=== PATIENT | male | born 1995 | race Caucasian/White ===

== ENCOUNTER 2020-04-05 20:23 | Observation (INO) | payer OTHER, SELFPAY ==
[2020-04-05] VITALS (9 sets, daily range): BP systolic 131–157; BP diastolic 67–98; PULSE 65–91; RESP 16–28; TEMP 37.3–37.6; O2SAT 95–100; BMI 20.9
--- NOTE | 2020-04-05 20:41 | PC.NURSE ---
patient was smoking weed with some friends and reports feeling light headed afterwards and passed out. He hit the back of his head on the pavement. He sustained a laceration on the back of his head that is approx 2 cm long with another small wound about 0.5cm long right next to it. he reports no midline tenderness on his cervical spine
--- NOTE | 2020-04-05 20:48 | ED_ITS ---
HPI - Syncope General Chief Complaint: Syncope Stated Complaint: fainted and hit his head Time Seen by Provider: 04/05/20 20:32 Source: patient Mode of arrival: Ambulatory Limitations: no limitations History of Present Illness HPI narrative: Patient brought in by his friend. Patient from out [facility]/[place] visiting here. No history of seizures. Patient admits prior to syncopal episode tonight he did smoke marijuana. He had conversation [place]. The conversation made him very anxious and was having difficulty breathing. Patient stated he was feeling faint/dizzy and lowered himself half way down and then fell backwards hitting the ground with his head. Loss of consciousness for about 15 seconds witnessed by his friends, 1 friend at bedside. No seizure activity. Patient is awake alert oriented at this time. Feels a little nauseated. No confusion otherwise. No numbness tingling or weakness. Prior to event denied any palpitation or chest pain or back pain or abdominal pain. Denies any other drug use. Did have 1 beer earlier today. Did have a full seafood meal prior to syncope.. No blood in your stools or black stools recently. No recent illness. No nausea vomiting or diarrhea. No fluid loss. Denies any other injuries complaint: loss of consciousness Related Data Home Medications Medication Instructions Recorded Confirmed No Known Home Medications 04/05/20 04/05/20 Allergies Allergy/AdvReac Type Severity Reaction Status Date / Time No Known Drug Allergies Allergy Verified 04/05/20 20:45 Review of Systems Review of Systems Narrative: GENERAL: Denies chills, fatigue, malaise, fever, sweats. HEENT: Denies sinus pain, ear pain, sore throat, difficulty swallowing RESPIRATORY: Complains dyspnea, denies cough CARDIOVASCULAR: Denies chest pain, palpitations, edema, GASTROINTESTINAL: Denies nausea, vomiting, abdominal pain, diarrhea, constipation, melena. : Denies dysuria, frequency, hematuria MUSCULOSKELETAL: denies muscle or bony pain SKIN: Denies rash, skin lesions NEUROLOGIC: Denies weakness, headache, numbness, change in speech, confusion PSYCHIATRIC: No SI or HI or hallucinations ROS Unobtainable: All systems reviewed & are unremarkable except as noted in HPI and below Patient History Social History Smoking Status: Never smoker Smoking Status: Never smoker alcohol intake frequency: 0-2 drinks per day Substance Use Type: marijuana Exam Narrative Exam Narrative: GENERAL: patient appears stated age. Well-nourished, well- developed patient, in no distress, not toxic not dyspneic HEAD: Normocephalic. Mild tenderness to the top of the scalp left of midline. Two small superficial lacerations. Each 1.5 cm, no bone or muscle injury seen. No gala aponeurosis injury seen. Based visualized bloodless field. No foreign body seen. No crepitus or step-off EYES: Pupils equal round and reactive. No scleral icterus. No injection no discharge ENT: Mucous membranes moist. No drooling no tongue elevation no trismus no malocclusion NECK: Trachea midline. Non tender, no C-spine midline tenderness or step-off. CARDIOVASCULAR: Regular rate and rhythm without murmurs, gallops, or rubs. RESPIRATORY: Clear to auscultation. Breath sounds equal bilaterally. No wheezes, rales, or rhonchi. GASTROINTESTINAL: Abdomen soft, non-tender, nondistended. EXTREMITIES: No gross deformities. BACK: Nontender without deformity or crepitance. No flank tenderness. NEURO: AOx3. Patient awake alert oriented to self and event. Clear speech no facial droop light touch intact to bilateral face hands and legs. Strong equal can tester. Able to stand at bedside with a steady Romberg. Negative pronator drift. SKIN: Warm and dry PSYCH: Not anxious, is cooperative Initial Vital Signs Initial Vital Signs: Vital Signs Temperature 99.4 F 04/05/20 20:31 Pulse Rate 87 04/05/20 20:31 Respiratory Rate 18 04/05/20 20:31 Blood Pressure 155/98 H 04/05/20 20:31 Pulse Oximetry 99 04/05/20 20:31 Procedures Laceration Repair Laceration 1: Site: scalp Side (If applicable): left Size (cm): 2 Description: linear Depth: simple, single layer Local Anesthetic: lidocaine 1% and with epi Amount of anesthesia used (mL): 2 Pre-repair: wound explored and irrigated extensively Skin layer closed with: david (6) Course Course Course Narrative: Orthostatics completed. Patient did elevate 20 beats on standing on pulse. Feels lightheaded. Decision to Admit Date: 04/05/20 Decision to Admit time: 22:02 Orders Ordered: ED Orders 04/05/20 20:33 Complete Blood Count AUTO DIFF Stat Comprehensive Metabolic Panel Stat Magnesium Routine Troponin & CK Cardiac Panel Stat 04/05/20 20:46 CT head/brain wo con Stat EKG-12 Lead Stat 04/05/20 21:24 Urinalysis and Microscopic Stat Urine Drug Screen, Rapid Stat 04/05/20 21:34 COVID19 -ED/INPAT/OR/L&D Stat 04/05/20 21:40 XR chest 1V Stat 04/05/20 22:08 Education, smoking cessation ONGOING 04/05/20 22:10 Consult to Discharge Planning Routine Acetaminophen (Tylenol) 650 mg PO Q6HR PRN PRN Reason: Fever/Mild Pain (1-3) Al Hydrox/Mg Hydrox/Simethicone (Maalox Plus) 30 ml PO Q6HR PRN PRN Reason: Dyspepsia Calcium Carbonate (Tums) 1,000 mg PO Q4HR PRN PRN Reason: Dyspepsia Sodium Chloride (Normal Saline 0.9%) 1,000 mls @ 75 mls/hr IV CONT SHAYNA Ibuprofen (Advil) 600 mg PO Q6HR PRN PRN Reason: Fever/Mild Pain (1-3) Naloxone HCl (Narcan) 0.2 mg IV Q2MIN PRN PRN Reason: Opiate Reversal Ondansetron HCl (Zofran) 4 mg IV Q6HR PRN PRN Reason: Nausea And Vomiting Discontinued Medications Diphtheria/Tetanus/Acell Pertussis (Adacel) 0.5 ml IM .ONCE ONE Stop: 04/05/20 20:48 Last Admin: 04/05/20 20:57 Dose: 0.5 ml Documented by: BIANCA Sodium Chloride (Normal Saline 0.9%) 1,000 mls @ 1,000 mls/hr IV BOLUS ONE Stop: 04/05/20 21:48 Last Infusion: 04/05/20 22:18 Dose: 0 mls/hr Documented by: Admin: 04/05/20 20:57 Dose: 1,000 mls/hr Documented by: BIANCA Lidocaine/Sodium Bicarbonate (Buffered Lidocaine 10 Ml Syr) 10 ml INJ NOW ONE Stop: 04/05/20 20:48 Last Admin: 04/05/20 20:57 Dose: 10 ml Documented by: BIANCA Ondansetron HCl (Zofran) 4 mg IV NOW ONE Stop: 04/05/20 20:48 Last Admin: 04/05/20 20:56 Dose: 4 mg Documented by: BIANCA Reevaluation(s) Reevaluation #1: Spoke with patient regarding results and EKG. Needing echocardiogram in observation tonight. He agrees. Time: 21:39 Consultations Consultation #1: Spoke with cardiology dr alegre, reviewed ekg with him.. Likely left ventricular hypertrophy, patient will need echocardiogram, advises patient be admitted observed tonight and echocardiogram in the morning Time: 21:14 Consultation #2: s/w conner, hospitalist, will admit, echocard in am Time: 22:02 Vital Signs Vital signs: Vital Signs - 8 hr 04/05/20 20:31 04/05/20 20:40 04/05/20 20:53 Temperature 99.4 F Pulse Rate 87 80 67 Pulse Rate [Orthostatic Lying] Pulse Rate [Orthostatic Sitting] Pulse Rate [Orthostatic Standing] Respiratory Rate 18 18 24 Blood Pressure 155/98 H 151/90 H 136/74 Blood Pressure [Orthostatic Lying] Blood Pressure [Orthostatic Sitting] Blood Pressure [Orthostatic Standing] Pulse Oximetry 99 100 100 04/05/20 20:58 04/05/20 21:00 04/05/20 22:00 Temperature Pulse Rate 91 H 88 Pulse Rate [Orthostatic Lying] 65 Pulse Rate [Orthostatic Sitting] 69 Pulse Rate [Orthostatic Standing] 84 Respiratory Rate 28 H Blood Pressure 149/89 H 136/90 Blood Pressure [Orthostatic Lying] 136/74 Blood Pressure [Orthostatic Sitting] 143/86 H Blood Pressure [Orthostatic Standing] 145/87 H Pulse Oximetry 100 97 MDM - Syncope Differential Diagnosis Differential diagnosis: Likely vasovagal syncope and dehydration Lab Data Attestation: I reviewed the patient's lab results. Result diagrams: 04/05/20 20:33 04/05/20 20:33 Labs: Lab Results 04/05/20 04/05/20 04/05/20 Range/Units 20:33 20:33 20:33 WBC 16.4 H (4.5-11.0) X10^3/uL RBC 4.92 (4.5-5.9) X10^6/uL Hgb 15.4 (13.5-17.5) g/dL Hct 44.7 (41-53) % MCV 90.8 (80-100) fL MCH 31.4 (26-34) PG MCHC 34.6 (30-36) % RDW 12.9 (11.6-14.8) % Plt Count 287 (150-400) X10^3/uL Neut % (Auto) 83.4 H (50-75) % Lymph % (Auto) 12.0 L (25-40) % [place] % (Auto) 3.7 (3-14) % Eos % (Auto) 0.2 L (2-4) % Baso % (Auto) 0.7 (0-2) % Neut # (Auto) 70346 H (8714-1122) /uL Lymph # (Auto) 2000 (9629-7376) /uL [place] # (Auto) 600 (0-900) /uL Eos # (Auto) 0 (0-450) /uL Baso # (Auto) 100 (0-100) /uL Sodium 131 L (137-145) mmol/L Potassium 3.5 (3.4-5.1) mmol/L Chloride 96 L (98-107) mmol/L Carbon Dioxide 27 (22-32) mmol/L BUN 11 (9-20) mg/dL Creatinine 0.56 L (0.66-1.25) mg/dL Estimated GFR > 60.0 (>60) mL/min BUN/Creatinine Ratio 19.6 (6-22) Glucose 102 H (70-100) mg/dL Calcium 9.6 (8.4-10.2) mg/dL Magnesium 1.6 (1.6-2.3) mg/dL Total Bilirubin 1.0 (0.2-1.3) mg/dL AST 32 (17-59) IU/L ALT 19 (<50) IU/L Alkaline Phosphatase 110 (38-126) U/L Total Creatine Kinase 84 (55-170) U/L CK-MB (CK-2) TNP CK-MB (CK-2) Rel Index TNP Troponin I < 0.012 (0.01-0.034) ng/mL Total Protein 8.0 (6.3-8.2) g/dL Albumin 5.0 (3.5-5.0) g/dL Globulin 3.0 (1.7-4.1) g/dL Albumin/Globulin Ratio 1.7 (1.0-2.8) Urine Color Urine Appearance Urine pH (4.5-8.0) Ur Specific [place] (1.000-1.035) Urine Protein (Negative) Urine Glucose (UA) (Negative) g/dL Urine Ketones (NEGATIVE) Urine Occult Blood (Negative) Urine Nitrate (Negative) Urine Bilirubin (NEGATIVE) Urine Urobilinogen (0.2) E.U./dL Ur Leukocyte Esterase (NEGATIVE) Urine RBC (0-5/HPF) Urine WBC (0-5/HPF) Urine Bacteria (None) Ur Culture Indicated? U Opiates 300ng/mL cut (Negative) Ur Oxycodone Screen (Negative) Urine Methadone Screen (Negative) Ur Barbiturates Screen (Negative) U Tricyclic Antidepress (Negative) Ur Phencyclidine Scrn (Negative) Ur Amphetamines Screen (Negative) U Methamphetamines Scrn (Negative) Ur MDMA Scrn (Ecstasy) (Negative) U Benzodiazepines Scrn (Negative) Urine Cocaine Screen (Negative) U Marijuana (THC) Screen (Negative) COVID-19 PCR (Negative) 04/05/20 04/05/20 04/05/20 Range/Units 21:24 21:24 21:34 WBC (4.5-11.0) X10^3/uL RBC (4.5-5.9) X10^6/uL Hgb (13.5-17.5) g/dL Hct (41-53) % MCV (80-100) fL MCH (26-34) PG MCHC (30-36) % RDW (11.6-14.8) % Plt Count (150-400) X10^3/uL Neut % (Auto) (50-75) % Lymph % (Auto) (25-40) % [place] % (Auto) (3-14) % Eos % (Auto) (2-4) % Baso % (Auto) (0-2) % Neut # (Auto) (6184-5210) /uL Lymph # (Auto) (8778-3662) /uL [place] # (Auto) (0-900) /uL Eos # (Auto) (0-450) /uL Baso # (Auto) (0-100) /uL Sodium (137-145) mmol/L Potassium (3.4-5.1) mmol/L Chloride (98-107) mmol/L Carbon Dioxide (22-32) mmol/L BUN (9-20) mg/dL Creatinine (0.66-1.25) mg/dL Estimated GFR (>60) mL/min BUN/Creatinine Ratio (6-22) Glucose (70-100) mg/dL Calcium (8.4-10.2) mg/dL Magnesium (1.6-2.3) mg/dL Total Bilirubin (0.2-1.3) mg/dL AST (17-59) IU/L ALT (<50) IU/L Alkaline Phosphatase (38-126) U/L Total Creatine Kinase (55-170) U/L CK-MB (CK-2) CK-MB (CK-2) Rel Index Troponin I (0.01-0.034) ng/mL Total Protein (6.3-8.2) g/dL Albumin (3.5-5.0) g/dL Globulin (1.7-4.1) g/dL Albumin/Globulin Ratio (1.0-2.8) Urine Color Straw Urine Appearance Clear Urine pH 7.0 (4.5-8.0) Ur Specific [place] <=1.005 (1.000-1.035) Urine Protein Negative (Negative) Urine Glucose (UA) Negative (Negative) g/dL Urine Ketones Negative (NEGATIVE) Urine Occult Blood Negative (Negative) Urine Nitrate Negative (Negative) Urine Bilirubin Negative (NEGATIVE) Urine Urobilinogen 0.2 (0.2) E.U./dL Ur Leukocyte Esterase Negative (NEGATIVE) Urine RBC None seen (0-5/HPF) Urine WBC None seen (0-5/HPF) Urine Bacteria None seen (None) Ur Culture Indicated? Cult not indicated U Opiates 300ng/mL cut Negative (Negative) Ur Oxycodone Screen Negative (Negative) Urine Methadone Screen Negative (Negative) Ur Barbiturates Screen Negative (Negative) U Tricyclic Antidepress Negative (Negative) Ur Phencyclidine Scrn Negative (Negative) Ur Amphetamines Screen Negative (Negative) U Methamphetamines Scrn Negative (Negative) Ur MDMA Scrn (Ecstasy) Negative (Negative) U Benzodiazepines Scrn Negative (Negative) Urine Cocaine Screen Positive H (Negative) U Marijuana (THC) Screen Positive H (Negative) COVID-19 PCR Negative (Negative) Imaging Data CT scan - head: Radiologist's Impression: [address] [address] [address] Scan Report Signed Patient: Fam Landa EMR#: [id number] : 1995Acct:[id number] Age/Sex: 25 / MDate of Service: 04/05/20 Loc: ED Accession Number: [id number] Procedure: CT head/brain wo con Ordering Provider: Aj Prescott MD PROCEDURE: CT HEAD/BRAIN WO CON INDICATIONS: Trauma/head injury TECHNIQUE: Noncontrast 4.5 mm thick angled axial sections acquired from the foramen magnum to the vertex, with coronal and sagittal reformats. For radiation dose reduction, the following was used: automated exposure control, adjustment of mA and/or kV according to patient size. COMPARISON: None. FINDINGS: Image quality: Excellent. CSF spaces: Basal cisterns are patent. No extra-axial fluid collections. Ventricles are normal in size and shape. Brain: No midline shift. No intracranial masses or hemorrhage. Sol-white matter interface is normal. Skull and face: Calvarium and visualized facial bones are intact, without suspicious lesions. Sinuses: Visualized sinuses and mastoids are clear. IMPRESSION: No acute intracranial abnormality. Dictated by: Héctor Gross M.D. on 04/05/2020 at 21:25 Approved by: Héctor Gross M.D. on 04/05/2020 at 21:27 Chest x-ray: Radiologist's Impression: [address] [address] XRay Report Signed Patient: Fam Landa EMR#: [id number] : 1995Acct:[id number] Age/Sex: 25 / MDate of Service: 04/05/20 Loc: ED Accession Number: [id number] Procedure: XR chest 1V Ordering Provider: Aj Prescott MD PROCEDURE: XR CHEST 1V INDICATIONS: Syncope TECHNIQUE: One view of the chest was acquired. COMPARISON: None. FINDINGS: Surgical changes and devices: None. Lungs and pleura: Lungs are clear. No pleural effusions or pneumothorax. Mediastinum: Mediastinal contours appear normal. Heart size is normal. Bones and chest wall: No suspicious bony lesions. Overlying soft tissues appear unremarkable. IMPRESSION: No acute cardiopulmonary abnormality. Dictated by: Héctor Gross M.D. on 04/05/2020 at 21:53 Approved by: Héctor Gross M.D. on 04/05/2020 at 21:53 ECG Data Attestation: I personally reviewed and interpreted this ECG as follows: Interpretation: Sinus rhythm, ventricular rate 84, reviewed with auricular detoxification specialist, possible left ventricular hypertrophy with ST deviation MDM Narrative Medical decision making narrative: Admitting after discussion with auricular detoxification specialist concern for left ventricular hypertrophy abnormalities. Will need echocardiogram in the morning Discharge Plan Departure Patient Disposition: Admitted as Observation Clinical Impression: Syncope and collapse Laceration of scalp Qualifiers: Encounter type: initial encounter Qualified Code(s): S01.01XA - Laceration without foreign body of scalp, initial encounter Discharge Date/Time: 04/05/20 22:18 Admit Date/Time: 04/05/20 22:08 Admit Provider: Dustin Lang
[2020-04-05 20:55] LABS: Add Manual Diff / Slide Review NO; Basophils Absolute Auto 100 /uL (0-100); Basophils Percent Auto 0.7 % (0-2); Eosinophils Absolute Auto 0 /uL (0-450); Eosinophils Percent Auto 0.2 % (2-4); Hematocrit 44.7 % (41-53); Hemoglobin 15.4 g/dL (13.5-17.5); Lymphocytes Absolute Auto 2000 /uL (1100-4500); Mean Corpuscular HGB Conc 34.6 % (30-36); Mean Corpuscular Hemoglobin 31.4 PG (26-34); Mean Corpuscular Volume 90.8 fL (80-100); Monocytes Absolute Auto 600 /uL (0-900); Monocytes Percent Auto 3.7 % (3-14); Neutrophils Absolute Auto 13700 /uL (1500-7000); Neutrophils Percent Auto 83.4 % (50-75); Platelet Count 287 X10^3/uL (150-400); Red Blood Cell Count 4.92 X10^6/uL (4.5-5.9); Red Cell Distribution Width 12.9 % (11.6-14.8); White Blood Cell Count 16.4 X10^3/uL (4.5-11.0)
[2020-04-05] MEDS: ONDANSETRON 4 MG/2 ML INJ IV (20:56)
[2020-04-05] MEDS: LIDO 1%/SOD BICARB 8.4% (10ML) 10 ML SYRINGE INJ (20:57)
[2020-04-05] MEDS: TET,DIPH,PERTUSS(ACELL),VAC/PF 0.5 ML SYRINGE IM (20:57)
[2020-04-05] MEDS: SODIUM CHLORIDE 0.9% 1,000 ML 1000 ML IV (20:57)
[2020-04-05 20:59] LABS: Alanine Aminotransferase 19 IU/L (<50); Albumin Globulin Ratio 1.7 (1.0-2.8); Alkaline Phosphatase 110 U/L (38-126); Aspartate Aminotransferase 32 IU/L (17-59); BUN Creatinine Ratio 19.6 (6-22); Blood Urea Nitrogen 11 mg/dL (9-20); Calcium 9.6 mg/dL (8.4-10.2); Carbon Dioxide 27 mmol/L (22-32); Chloride 96 mmol/L (98-107); Creatine Kinase 84 U/L (55-170); Estimated Glomerular Filt Rate > 60.0 mL/min (>60); Glucose 102 mg/dL (70-100); HEMOLYSIS 17 (0-50); Potassium 3.5 mmol/L (3.4-5.1); Sodium 131 mmol/L (137-145)
[2020-04-05 21:11] LABS: Troponin I < 0.012 ng/mL (0.01-0.034)
--- NOTE | 2020-04-05 21:40 | DI.RAD.S_ITS ---
PROCEDURE: XR CHEST 1V INDICATIONS: Syncope TECHNIQUE: One view of the chest was acquired. COMPARISON: None. FINDINGS: Surgical changes and devices: None. Lungs and pleura: Lungs are clear. No pleural effusions or pneumothorax. Mediastinum: Mediastinal contours appear normal. Heart size is normal. Bones and chest wall: No suspicious bony lesions. Overlying soft tissues appear unremarkable. IMPRESSION: No acute cardiopulmonary abnormality. Dictated by: Héctor Gross M.D. on 04/05/2020 at 21:53 Approved by: Héctor Gross M.D. on 04/05/2020 at 21:53
[2020-04-05 21:51] LABS: Bacteria Urine None Seen; RBC Urine None Seen (0-5/HPF); WBC Urine None Seen (0-5/HPF)
[2020-04-05 21:55] LABS: Appearance Urine UA CLEAR; Bilirubin Urine UA NEGATIVE (NEGATIVE); Glucose Urine UA NEGATIVE (Negative); Ketones Urine UA NEGATIVE (NEGATIVE); Leukocyte Esterase Urine UA NEGATIVE (NEGATIVE); Nitrite Urine UA NEGATIVE (Negative); Occult Blood Urine UA NEGATIVE (Negative); Protein Urine UA NEGATIVE (Negative); Specific Gravity Urine UA <=1.005 (1.000-1.035); Urobilinogen Urine UA 0.2 E.U./dL (0.2)
[2020-04-05 21:56] LABS: Color Urine UA Straw
[2020-04-05 22:01] LABS: UR Morphine/Opiate cutoff 300 Negative (Negative); Ur Creatinine Normal (Normal); Ur Specific Gravity Normal (Normal); Urine Amphetamines Negative (Negative); Urine Barbiturates Negative (Negative); Urine Benzodiazepines Negative (Negative); Urine Cocaine Positive (Negative); Urine MDMA Negative (Negative); Urine Methadone Negative (Negative); Urine Methamphetamines Negative (Negative); Urine Oxycodone Negative (Negative); Urine Phencyclidine Negative (Negative); Urine Tetrahydrocannabinol Positive (Negative); Urine Tricyclic Antidepressant Negative (Negative); Urine pH Normal (Normal)
[2020-04-05 22:05] LABS: Culture Indicated Urine Cult Not Indicated
[2020-04-05 22:07] LABS: COVID19 -Nasal RAPID Negative (Negative)
--- NOTE | 2020-04-05 22:14 | DI.ECHO.S_ITS ---
[facility] +---------+ : : [address] : : : : [address] : : : : Phone: [phone] Echocardiogram Report + + :Name: JOHN HARDEN Study Date: 04/06/2020 Height: 71 in : :[facility] Weight: 150 lb : : Gender: Male BSA: 1.9 m2 : :: 1995 Age: 25 yrs BP: 136/90 mmHg: :Reason For Study: SYNCOPE, CONCERN FOR LVH : :Ordering Physician: : :ANAISTYUE Performed By: Chata Beltran : :Referring: VIDA JI : + + Interpretation Summary The left ventricle is normal in size and wall thickness. The ejection fraction is estimated to be 60-65%. The right ventricle is normal in size and function. No significant valvular pathology seen. The right ventricular systolic pressure is estimated to be at least 37 mmHg based on an estimated right atrial pressure of 8 mm Hg. Procedure: A two-dimensional transthoracic echocardiogram with color flow and Doppler was performed. The study quality was technically adequate. There is no prior echocardiogram noted for this patient. The patient was in sinus rhythm with heart rates between 56-68 bpm during the exam. Left Ventricle: The left ventricle is normal in size and wall thickness. There is no thrombus. The ejection fraction is estimated to be 60-65%. There are no focal wall motion abnormalities. Diastolic parameters suggest probable normal left ventricular diastolic function and normal filling pressures. Right Ventricle: The right ventricle is normal in size and function. Atria: The left atrium is mildly dilated. Right atrial size is normal. There is no Doppler evidence for an interatrial shunt. Mitral Valve: The mitral valve is normal in structure and function. There is trace mitral regurgitation. Aortic Valve: The aortic valve is trileaflet. The aortic valve opens well. There is no aortic valve stenosis. No aortic regurgitation is present. Tricuspid Valve: The tricuspid valve is normal. The right ventricular systolic pressure is estimated to be at least 37 mmHg based on an estimated right atrial pressure of 8 mm Hg. There is trace tricuspid regurgitation. Pulmonic Valve: The pulmonic valve leaflets are thin and pliable; valve motion is normal. There is mild pulmonic regurgitation. Great Vessels: The aortic root is normal size. The dimensions of the ascending aorta are normal. The IVC is dilated (diameter is greater than 2.1 cm) yet it collapses greater than 50% with a sniff. This suggests a right atrial pressure of 8 mm Hg. Pericardium/ Pleura There is no pericardial effusion. There is no pleural effusion. MMode/2D Measurements & Calculations LVIDd: 5.0 cm LVOT diam: 2.7 cm LVIDs: 3.4 cm Ao root diam: 3.3 cm FS: 30.8 % asc Aorta Diam: 3.0 cm EPSS: 0.46 cm Ao Arch Diam (Prox Trans): 2.9 cm IVSd: 0.84 cm LVPWd: 0.88 cm LV oconnor. diameter/BSA (cm/m^2): 2.7 LV sys. diameter/BSA (cm/m^2): 1.8 LA A2 area: 20.8 cm2 RA long axis: 5.3 cm LA A4 area: 20.6 cm2 RA area: 19.1 cm2 LA length (vol): 5.0 cm RA vol: 58.2 ml LA vol: 73.5 ml RA : 31.2 ml/m2 LA vol index: 39.4 ml/m2 IVC diam: 2.8 cm RVD1 (basal): 3.9 cm TAPSE: 3.1 cm Doppler Measurements & Calculations Ao V2 max: 141.0 cm/sec LVOT Max Johnny: 103.4 cm/sec Ao V2 mean: 90.7 cm/sec LV V1 max P.3 mmHg Ao max P.0 mmHg LV V1 VTI: 19.7 cm Ao mean P.8 mmHg BONNIE(I,D): 3.9 cm2 Ao V2 VTI: 27.7 cm BONNIE(V,D): 4.1 cm2 sev ratio: 0.71 BONNIE indexed to BSA (cm^2/m^2): 2.1 MV E max johnny: 89.3 cm/sec TR max johnny: 264.0 cm/sec MV A max johnny: 44.1 cm/sec TR max P.3 mmHg MV E/A: 2.0 PA V2 max: 94.0 cm/sec Med Peak E' Johnny: 15.4 cm/sec PA V2 mean: 67.7 cm/sec E/E' med: 5.8 PA mean P.0 mmHg Lat Peak E' Johnny: 21.9 cm/sec PA pr(Accel): 20.8 mmHg E/E' lat: 4.1 E/e' average: 4.9 MV dec time: 0.21 sec SV(LVOT): 109.2 ml Reading Physician:01:33 PM
[2020-04-05 22:24] LABS: Magnesium 1.6 mg/dL (1.6-2.3)
[2020-04-05] MEDS: ACETAMINOPHEN 325 MG TABLET 650 MG PO (22:41)
--- NOTE | 2020-04-05 22:57 | P.HP_ITS ---
History of Present Illness History of Present Illness Date Patient Seen: 04/05/20 Time Patient Seen: 22:31 Chief complaint: fainted and hit his head Narrative: Mr. Fam Denise is a 25-year-old male with no significant medical history who presents to the ER following a syncopal episode resulting in a ground level fall from standing. The patient states that is on the very and having what he describes as an intense discussion with his friend about accident he had had. Patient had recently smoked marijuana and describes that he was ?very into the story? during which time he became feeling anxious and panicky with mild shortness of breath and dizziness that progressed to his syncopal episode occurring approximately 3 hours prior to arrival to the hospital. The patient fell backwards from standing striking the back of his head. Per the patient's friend he was unresponsive for approximately 15 seconds during which time no seizure activity was noted. Patient additionally endorses consuming beer prior to the event. He also indicates that he had cocaine 2 days ago. The patient has no previous history of syncope and has been long distance runner. He has no numbness or tingling, recent complaints of illness for cold or flu symptoms, fevers or chills. H does complain of left jaw pain without TMJ pain or malocclusion related to his fall. Following his fall he describes feeling dizzy while waiting for the returned very with hot and cold which resolved by of time of arrival to the hospital. He denies complaints of neck or back pain. He denies complaints of chest pain has had no palpitations. Ms. complaints of shortness of breath cough wheezing. He has had no abdominal pain, changes in bowel or bladder habits. Upon arrival to the ER the patient has temperature 99.4?, heart rate of 87, blood pressure 155/958, respirations of 18 saturating 98% on room air. Chest x- ray is obtained which finds no acute abnormalities and a normal cardiac silhouette. A CT of the head reveals no intracranial abnormalities. On laboratory analysis he has elevated white count of 16.4, hemoglobin of 15.4, hematocrit 44.7 and platelets of 287. His sodium is 131 over the remainder of left lytes are within normal limits. He has BUN of 11 and creatinine 0.56. His nonfasting glucose is 102. Liver functions are all within normal limits and has a total CK of 84 and a troponin is less than 0.012. Urinalysis negative for infection. Urine drug screen is positive for cocaine and marijuana. Twelve lead EKG is obtained which finds sinus rhythm with a ventricular rate of 84 without ectopy or block, p.r. interval is 116 milliseconds QRS 102 milliseconds and QT C is 403 milliseconds. He has inverted P waves in V1 and V2 consistent with left atrial enlargement and has left ventricular hypertrophy by voltage criteria. He also has abnormal T-wave with prolonged repolarization a biphasic T-wave in lead I and lead II. Due to the EKG abnormalities in 25-year-old Dr. Flower ortiz cardiology was consulted who recommended overnight observation and echocardiogram. The patient is admitted to the hospital for syncopal episode in further cardiac workup. Patient History Medical History No significant medical problems (Acute) Surgical History No significant past surgical history (Acute) Family & Social History Family History (Updated 04/05/20 @ 23:14 by MIGUEL Lebron) Father No significant medical problems Mother No significant medical problems Grandfather Cancer Grandmother Diabetes mellitus Grandfather Cancer Social History: household members friend(s) Prior Living Arrangements Apartment/Condo Safety & Behavioral: Feels Safe in Current Yes Environment Been Physically Hurt or No Threatened By a Person Suicidal Ideation Description None Suicide Plan Description No Plan Tobacco & Substance use: Tobacco type cannabis/marijuana Smoking Status Current some day smoker alcohol intake current alcohol intake frequency a few times a week Substance Use Type marijuana Meds Home Medications and Allergies Home Medications Medication Instructions Recorded Confirmed Type No Known Home Medications 04/05/20 04/05/20 History Allergies Allergy/AdvReac Type Severity Reaction Status Date / Time No Known Drug Allergies Allergy Verified 04/05/20 20:45 Review of Systems Review of Systems ROS: Yes All systems reviewed with the patient and are negative except as otherwise documented Exam Vital Signs (past 8 hours): - 04/05/20 20:31 04/05/20 20:40 04/05/20 20:53 Temperature 99.4 F Pulse Rate 87 80 67 Pulse Rate [Orthostatic Lying] Pulse Rate [Orthostatic Sitting] Pulse Rate [Orthostatic Standing] Respiratory Rate 18 18 24 Blood Pressure 155/98 H 151/90 H 136/74 Blood Pressure [Orthostatic Lying] Blood Pressure [Orthostatic Sitting] Blood Pressure [Orthostatic Standing] Pulse Oximetry 99 100 100 04/05/20 20:58 04/05/20 21:00 04/05/20 21:30 Temperature Pulse Rate 91 H Pulse Rate [Orthostatic Lying] 65 Pulse Rate [Orthostatic Sitting] 69 Pulse Rate [Orthostatic Standing] 84 Respiratory Rate 28 H Blood Pressure 149/89 H 131/72 Blood Pressure [Orthostatic Lying] 136/74 Blood Pressure [Orthostatic Sitting] 143/86 H Blood Pressure [Orthostatic Standing] 145/87 H Pulse Oximetry 100 97 04/05/20 22:00 04/05/20 22:25 Temperature 99.6 F Pulse Rate 88 89 Pulse Rate [Orthostatic Lying] Pulse Rate [Orthostatic Sitting] Pulse Rate [Orthostatic Standing] Respiratory Rate 16 Blood Pressure 136/90 157/70 H Blood Pressure [Orthostatic Lying] Blood Pressure [Orthostatic Sitting] Blood Pressure [Orthostatic Standing] Pulse Oximetry 97 96 Oxygen Delivery Method Room Air Oxygen Flow Rate 0 Narrative Exam Narrative: GENERAL APPEARANCE: well developed, well nourished, athletic appearing clean male in no acute distress. HEENT: Occipital laceration without active bleeding, PERRLA, conjunctiva clear, EOMs intact without nystagmus, left zygomatic and mandibular tenderness on palpation without bony deformities ecchymosis or contusion, no malocclusion, no rhinorrhea or epistaxis, mucous membranes are moist and pink without lesions or exudate. NECK/THYROID: neck supple, nontender to palpation without step-offs, no muscular spasms, no JVD, no thyromegaly, trachea midline. LYMPH NODES: no cervical or supraclavicular lymphadenopathy. SKIN: [place], warm and dry, no visible lesions, rashes, ulcerations or petechiae. HEART: regular rate and rhythm, S1-S2, no murmur, no rubs or gallops, PMI nondisplaced, brisk capillary refill, no edema LUNGS: clear to auscultation bilaterally, no coarseness crackles or wheezing, no cough present CHEST: Symmetrical movement, no accessory muscle use, good tidal volume, no pain to AP and lateral compression. ABDOMEN: Soft, no distention, no abdominal tenderness, no organomegaly, no flank tenderness, active bowel tones. BACK: Normal curvature, nontender to palpation, no CVA tenderness on percussion EXTREMITIES: moves all extremities, strength is 5/5 and symmetrical, no deformities or joint effusions no pain with straight leg raise. NEUROLOGIC: AAO x4, no focal neurologic deficits, cranial nerves II-XII grossly intact, sensation intact to light touch, hearing grossly normal to speech. PSYCH: Good judgment, good insight, linear thought process, cooperative, appropriate with stable behavior Objective Labs Result Diagrams: 04/05/20 20:33 04/05/20 20:33 Labs: Laboratory Results - last 24 hr 04/05/20 04/05/20 04/05/20 20:33 20:33 20:33 WBC 16.4 H RBC 4.92 Hgb 15.4 Hct 44.7 MCV 90.8 MCH 31.4 MCHC 34.6 RDW 12.9 Plt Count 287 Neut % (Auto) 83.4 H Lymph % (Auto) 12.0 L [place] % (Auto) 3.7 Eos % (Auto) 0.2 L Baso % (Auto) 0.7 Neut # (Auto) 01353 H Lymph # (Auto) 2000 [place] # (Auto) 600 Eos # (Auto) 0 Baso # (Auto) 100 Sodium 131 L Potassium 3.5 Chloride 96 L Carbon Dioxide 27 BUN 11 Creatinine 0.56 L Estimated GFR > 60.0 BUN/Creatinine Ratio 19.6 Glucose 102 H Calcium 9.6 Magnesium 1.6 Total Bilirubin 1.0 AST 32 ALT 19 Alkaline Phosphatase 110 Total Creatine Kinase 84 CK-MB (CK-2) TNP CK-MB (CK-2) Rel Index TNP Troponin I < 0.012 Total Protein 8.0 Albumin 5.0 Globulin 3.0 Albumin/Globulin Ratio 1.7 Urine Color Urine Appearance Urine pH Ur Specific [place] Urine Protein Urine Glucose (UA) Urine Ketones Urine Occult Blood Urine Nitrate Urine Bilirubin Urine Urobilinogen Ur Leukocyte Esterase Urine RBC Urine WBC Urine Bacteria Ur Culture Indicated? U Opiates 300ng/mL cut Ur Oxycodone Screen Urine Methadone Screen Ur Barbiturates Screen U Tricyclic Antidepress Ur Phencyclidine Scrn Ur Amphetamines Screen U Methamphetamines Scrn Ur MDMA Scrn (Ecstasy) U Benzodiazepines Scrn Urine Cocaine Screen U Marijuana (THC) Screen COVID-19 PCR 04/05/20 04/05/20 04/05/20 21:24 21:24 21:34 WBC RBC Hgb Hct MCV MCH MCHC RDW Plt Count Neut % (Auto) Lymph % (Auto) [place] % (Auto) Eos % (Auto) Baso % (Auto) Neut # (Auto) Lymph # (Auto) [place] # (Auto) Eos # (Auto) Baso # (Auto) Sodium Potassium Chloride Carbon Dioxide BUN Creatinine Estimated GFR BUN/Creatinine Ratio Glucose Calcium Magnesium Total Bilirubin AST ALT Alkaline Phosphatase Total Creatine Kinase CK-MB (CK-2) CK-MB (CK-2) Rel Index Troponin I Total Protein Albumin Globulin Albumin/Globulin Ratio Urine Color Straw Urine Appearance Clear Urine pH 7.0 Ur Specific [place] <=1.005 Urine Protein Negative Urine Glucose (UA) Negative Urine Ketones Negative Urine Occult Blood Negative Urine Nitrate Negative Urine Bilirubin Negative Urine Urobilinogen 0.2 Ur Leukocyte Esterase Negative Urine RBC None seen Urine WBC None seen Urine Bacteria None seen Ur Culture Indicated? Cult not indicated U Opiates 300ng/mL cut Negative Ur Oxycodone Screen Negative Urine Methadone Screen Negative Ur Barbiturates Screen Negative U Tricyclic Antidepress Negative Ur Phencyclidine Scrn Negative Ur Amphetamines Screen Negative U Methamphetamines Scrn Negative Ur MDMA Scrn (Ecstasy) Negative U Benzodiazepines Scrn Negative Urine Cocaine Screen Positive H U Marijuana (THC) Screen Positive H COVID-19 PCR Negative Assessment & Plan Assessment & Plan narrative: This is a 25-year-old male who experienced a witnessed syncopal episode being unresponsive for 15 seconds without seizure activity. This may have been provoked somewhat by emotional response while under the influence of marijuana and alcohol. 1. Syncopal episode resulting in ground level fall, acute, active -witnessed syncopal event falling backwards from standing striking the back of his head sustaining laceration which has been repaired. -patient with antecedent emotional response described as panic with associated s hortness or breath and dizziness. No prior head history of such previous event. -labs grossly unremarkable however sodium is low at 131 but likely noncontributory to this afternoon's event. Cardiac enzymes are negative. -chest x-ray is unremarkable in 12 lead EKG without ectopy or block however does note short p.r. interval at 116 milliseconds. -will monitor the patient on telemetry overnight and obtain echocardiogram in the morning. 2. Abnormal EKG, present on admission, active. -no complaints of chest pain or shortness of breath no further nausea diaphoresis. No complaints of palpitations. -Twelve lead EKG is obtained which finds sinus rhythm with a ventricular rate of 84 without ectopy or block, p.r. interval is 116 milliseconds QRS 102 milliseconds and QT C is 403 milliseconds. He has inverted P waves in V1 and V2 consistent with left atrial enlargement and has left ventricular hypertrophy by voltage criteria. He also has abnormal T-wave with prolonged repolarization a biphasic T-wave in lead I and lead II. -EKG reviewed by Dr. España, cardiology, express concern for possible idiopathic left ventricular hypertrophy for hypertrophic cardiomyopathy, he recommended overnight observation and echocardiogram. -echocardiogram ordered for the morning. VTE prophylaxis: Not indicated IV fluid: Normal saline 75 cc/hour Diet: Regular Code status: Full code, patient designates his partner Anusha Amin to be his surrogate decision maker. The patient is admitted to the hospital due to the significance of his symptoms and EKG findings requiring further monitoring and investigation. The patient is admitted as observation with expected length stay to be less than 2 midnights. COVID-19 Result date/Date tested (Pos, Neg/Pending): 04/05/20 Scores GCS Yaron coma scale eye opening: Spontaneous Yaron coma scale verbal response: Orientated Yaron coma scale motor response: Obey commands Yaron coma scale total score: 15 Quality VTE Deep Vein Thrombosis/Pulmonary Embolism Present on Admission: No
[2020-04-05] MEDS: MELATONIN 3 MG TABLET 6 MG PO (23:25)
[2020-04-05] MEDS: SODIUM CHLORIDE 0.9% 1,000 ML 75 ML IV (23:26)
[2020-04-06 03:52] VITALS: BP 137/70; PULSE 50; RESP 16; TEMP 36.8; O2SAT 98
[2020-04-06 06:03] LABS: BUN Creatinine Ratio 13.1 (6-22); Blood Urea Nitrogen 8 mg/dL (9-20); Calcium 9.2 mg/dL (8.4-10.2); Carbon Dioxide 28 mmol/L (22-32); Chloride 104 mmol/L (98-107); Estimated Glomerular Filt Rate > 60.0 mL/min (>60); Glucose 111 mg/dL (70-100); HEMOLYSIS < 15 (0-50); Potassium 3.8 mmol/L (3.4-5.1); Sodium 138 mmol/L (137-145)
[2020-04-06] MEDS: ACETAMINOPHEN 325 MG TABLET 650 MG PO ×2 (06:30→12:13)
[2020-04-06 07:50] VITALS: BP 139/86; PULSE 65; RESP 15; TEMP 36.4; O2SAT 100
[2020-04-06] MEDS: INFLUENZA VACCINE 0.5 ML SYRINGE IM (08:18)
--- NOTE | 2020-04-06 10:22 | PC.NURSE ---
Addendum entered by Duane Smith R.N. 04/06/20 13:57: PATIENT EAGER TO DC HOME, HAS FLIGHT BACK TO [place] AT 5PM. ECHO RESULTS NOTED AND DR. ALURA HAS REVIEWED. DC ORDERS ACKNOWLEDGED. PATIENT CONFIRMS UNDERSTANDING OF HIS DC HOME INSTRUCTIONS. HE IS ESTABLISHING W/ A NEW PCP AND WILL MAKE AN APPT TO HAVE HIS DARLEEN REMOVED IN APPROX 1 WEEK. IF HE IS UNABLE TO OBTAIN A TIMELY APPT HE WAS INSTRUCTED TO PRESENT TO A WALK-IN CLINIC FOR SAME. PATIENT CONFIRMS UNDERSTANDING. Addendum entered by Duane Smith R.N. 04/06/20 11:55: ECHO COMPLETED. Original Note: PATIENT REPORTS PRICE DOWN TO 3/10 THIS AM AFTER TYLENOL ON NOC SHIFT. NO FURTHER COMPLAINTS. ECHO PLANNED FOR TODAY. IV SL'D PER NEW ORDERS. DOES NOT APPEAR DISTRESSED, CALM AND COOPERATIVE.
[2020-04-06 12:00] VITALS: BP 128/52; PULSE 62; RESP 15; TEMP 36.4; O2SAT 100
--- NOTE | 2020-04-06 13:51 | PM.DS.1 ---
History of Present Illness History of Present Illness Date Patient Seen: 04/06/20 Time Patient Seen: 13:51 Chief complaint: fainted and hit his head Narrative: As per MIGUEL Lebron: Mr. Fam Denise is a 25-year-old male with no significant medical history who presents to the ER following a syncopal episode resulting in a ground level fall from standing. The patient states that is on the very and having what he describes as an intense discussion with his friend about accident he had had. Patient had recently smoked marijuana and describes that he was ?very into the story? during which time he became feeling anxious and panicky with mild shortness of breath and dizziness that progressed to his syncopal episode occurring approximately 3 hours prior to arrival to the hospital. The patient fell backwards from standing striking the back of his head. Per the patient's friend he was unresponsive for approximately 15 seconds during which time no seizure activity was noted. Patient additionally endorses consuming beer prior to the event. He also indicates that he had cocaine 2 days ago. The patient has no previous history of syncope and has been long distance runner. He has no numbness or tingling, recent complaints of illness for cold or flu symptoms, fevers or chills. H does complain of left jaw pain without TMJ pain or malocclusion related to his fall. Following his fall he describes feeling dizzy while waiting for the returned very with hot and cold which resolved by of time of arrival to the hospital. He denies complaints of neck or back pain. He denies complaints of chest pain has had no palpitations. Ms. complaints of shortness of breath cough wheezing. He has had no abdominal pain, changes in bowel or bladder habits. Upon arrival to the ER the patient has temperature 99.4?, heart rate of 87, blood pressure 155/958, respirations of 18 saturating 98% on room air. Chest x-ray is obtained which finds no acute abnormalities and a normal cardiac silhouette. A CT of the head reveals no intracranial abnormalities. On laboratory analysis he has elevated white count of 16.4, hemoglobin of 15.4, hematocrit 44.7 and platelets of 287. His sodium is 131 over the remainder of left lytes are within normal limits. He has BUN of 11 and creatinine 0.56. His nonfasting glucose is 102. Liver functions are all within normal limits and has a total CK of 84 and a troponin is less than 0.012. Urinalysis negative for infection. Urine drug screen is positive for cocaine and marijuana. Twelve lead EKG is obtained which finds sinus rhythm with a ventricular rate of 84 without ectopy or block, p.r. interval is 116 milliseconds QRS 102 milliseconds and QT C is 403 milliseconds. He has inverted P waves in V1 and V2 consistent with left atrial enlargement and has left ventricular hypertrophy by voltage criteria. He also has abnormal T-wave with prolonged repolarization a biphasic T-wave in lead I and lead II. Due to the EKG abnormalities in [address]-year-old Dr. Flower ortiz cardiology was consulted who recommended overnight observation and echocardiogram. The patient is admitted to the hospital for syncopal episode in further cardiac workup. Discharge Providers Provider Date of admission: 04/05/20 22:08 Discharge Date: 04/06/20 Consults: 04/05/20 22:10 Consult to Discharge Planning Routine Comment: Discharge provider: Dustin Mason DO Summary Hospital Course Discharge Diagnosis: 1. Syncopal episode resulting in ground level fall, acute 2. Abnormal EKG, present on admission, active. 3. polysubstance use Hospital Course: This is a 25-year-old male who experienced a witnessed syncopal episode being unresponsive for 15 seconds without seizure activity. This may have been provoked somewhat by emotional response while under the influence of marijuana and alcohol. His EKG she did show evidence of possible left ventricular hypertrophy as well as inverted P-waves in V1 and V2. ER reviewed the EKG with Dr. España of cardiology who recommended observation overnight for possible hypertrophic cardiomyopathy. The patient's echocardiogram was unremarkable and there were no acute events on telemetry. He was discharged the following day feeling improved. Exam Vital Signs (past 8 hours): - 04/06/20 07:50 04/06/20 12:00 Temperature 97.6 F 97.5 F L Pulse Rate 65 62 Respiratory Rate 15 15 Blood Pressure 139/86 128/52 L Pulse Oximetry 100 100 Oxygen Delivery Method Room Air Oxygen Flow Rate 0 Narrative Exam Narrative: GENERAL APPEARANCE: Well developed, well nourished, in no acute distress. SKIN: Inspection of the skin reveals no rashes, ulcerations or petechiae. HEENT: Normocephalic atraumatic, extraocular muscles are intact, oropharynx is clear and mucous membranes are moist, neck is supple without adenopathy NECK: Supple and symmetric. There was no thyroid enlargement, and no tenderness, or masses were felt. CHEST: Normal AP diameter and normal contour without any kyphoscoliosis. LUNGS: Auscultation of the lungs revealed no wheezes, rhonchi, or rales. CARDIOVASCULAR: There was a regular rate and rhythm without any murmurs, gallops, rubs. Peripheral pulses were 2+ and symmetric. ABDOMEN: Soft and nontender with normal bowel sounds. No ascites was noted. MUSCULOSKELETAL: There was no tenderness or effusions noted. Muscle strength and tone were normal. EXTREMITIES: No cyanosis, clubbing or edema. NEUROLOGIC: Alert and oriented x 3. Normal affect. Gait was normal. Strength is +5/5 in the Upper Extremities and Lower Extremities Bilaterally. Sensation to touch was normal. Objective Labs Result Diagrams: 04/05/20 20:33 04/06/20 05:25 Labs: Laboratory Results - last 24 hr 04/05/20 04/05/20 04/05/20 20:33 20:33 20:33 WBC 16.4 H RBC 4.92 Hgb 15.4 Hct 44.7 MCV 90.8 MCH 31.4 MCHC 34.6 RDW 12.9 Plt Count 287 Neut % (Auto) 83.4 H Lymph % (Auto) 12.0 L [place] % (Auto) 3.7 Eos % (Auto) 0.2 L Baso % (Auto) 0.7 Neut # (Auto) 27709 H Lymph # (Auto) 2000 [place] # (Auto) 600 Eos # (Auto) 0 Baso # (Auto) 100 Sodium 131 L Potassium 3.5 Chloride 96 L Carbon Dioxide 27 BUN 11 Creatinine 0.56 L Estimated GFR > 60.0 BUN/Creatinine Ratio 19.6 Glucose 102 H Calcium 9.6 Magnesium 1.6 Total Bilirubin 1.0 AST 32 ALT 19 Alkaline Phosphatase 110 Total Creatine Kinase 84 CK-MB (CK-2) TNP CK-MB (CK-2) Rel Index TNP Troponin I < 0.012 Total Protein 8.0 Albumin 5.0 Globulin 3.0 Albumin/Globulin Ratio 1.7 Urine Color Urine Appearance Urine pH Ur Specific [place] Urine Protein Urine Glucose (UA) Urine Ketones Urine Occult Blood Urine Nitrate Urine Bilirubin Urine Urobilinogen Ur Leukocyte Esterase Urine RBC Urine WBC Urine Bacteria Ur Culture Indicated? U Opiates 300ng/mL cut Ur Oxycodone Screen Urine Methadone Screen Ur Barbiturates Screen U Tricyclic Antidepress Ur Phencyclidine Scrn Ur Amphetamines Screen U Methamphetamines Scrn Ur MDMA Scrn (Ecstasy) U Benzodiazepines Scrn Urine Cocaine Screen U Marijuana (THC) Screen COVID-19 PCR 04/05/20 04/05/20 04/05/20 21:24 21:24 21:34 WBC RBC Hgb Hct MCV MCH MCHC RDW Plt Count Neut % (Auto) Lymph % (Auto) [place] % (Auto) Eos % (Auto) Baso % (Auto) Neut # (Auto) Lymph # (Auto) [place] # (Auto) Eos # (Auto) Baso # (Auto) Sodium Potassium Chloride Carbon Dioxide BUN Creatinine Estimated GFR BUN/Creatinine Ratio Glucose Calcium Magnesium Total Bilirubin AST ALT Alkaline Phosphatase Total Creatine Kinase CK-MB (CK-2) CK-MB (CK-2) Rel Index Troponin I Total Protein Albumin Globulin Albumin/Globulin Ratio Urine Color Straw Urine Appearance Clear Urine pH 7.0 Ur Specific [place] <=1.005 Urine Protein Negative Urine Glucose (UA) Negative Urine Ketones Negative Urine Occult Blood Negative Urine Nitrate Negative Urine Bilirubin Negative Urine Urobilinogen 0.2 Ur Leukocyte Esterase Negative Urine RBC None seen Urine WBC None seen Urine Bacteria None seen Ur Culture Indicated? Cult not indicated U Opiates 300ng/mL cut Negative Ur Oxycodone Screen Negative Urine Methadone Screen Negative Ur Barbiturates Screen Negative U Tricyclic Antidepress Negative Ur Phencyclidine Scrn Negative Ur Amphetamines Screen Negative U Methamphetamines Scrn Negative Ur MDMA Scrn (Ecstasy) Negative U Benzodiazepines Scrn Negative Urine Cocaine Screen Positive H U Marijuana (THC) Screen Positive H COVID-19 PCR Negative 04/06/20 05:25 WBC RBC Hgb Hct MCV MCH MCHC RDW Plt Count Neut % (Auto) Lymph % (Auto) [place] % (Auto) Eos % (Auto) Baso % (Auto) Neut # (Auto) Lymph # (Auto) [place] # (Auto) Eos # (Auto) Baso # (Auto) Sodium 138 Potassium 3.8 Chloride 104 Carbon Dioxide 28 BUN 8 L Creatinine 0.61 L Estimated GFR > 60.0 BUN/Creatinine Ratio 13.1 Glucose 111 H Calcium 9.2 Magnesium Total Bilirubin AST ALT Alkaline Phosphatase Total Creatine Kinase CK-MB (CK-2) CK-MB (CK-2) Rel Index Troponin I Total Protein Albumin Globulin Albumin/Globulin Ratio Urine Color Urine Appearance Urine pH Ur Specific [place] Urine Protein Urine Glucose (UA) Urine Ketones Urine Occult Blood Urine Nitrate Urine Bilirubin Urine Urobilinogen Ur Leukocyte Esterase Urine RBC Urine WBC Urine Bacteria Ur Culture Indicated? U Opiates 300ng/mL cut Ur Oxycodone Screen Urine Methadone Screen Ur Barbiturates Screen U Tricyclic Antidepress Ur Phencyclidine Scrn Ur Amphetamines Screen U Methamphetamines Scrn Ur MDMA Scrn (Ecstasy) U Benzodiazepines Scrn Urine Cocaine Screen U Marijuana (THC) Screen COVID-19 PCR Discharge Plan Discharge Plan Patient Disposition: Home Provider Discharge Comment: You were admitted to the hospital after an episode of syncope. After your EKG appearance you had an ultrasound (echo) which was unremarkable. Remember to stay hydrated, avoid substance use, and there are no restrictions on your activity. Discharge orders & Medications Prescriptions: No Action No Known Home Medications RF: 0 Diet/Activity/Treatments Diet: Diet as Tolerated Activity: As tolerated Visit Report/Discharge Packet Instructions: DI for Syncope in Adults (Fainting), DI for Laceration Repair -- [place] Visit Report Forms: Patient Portal/API, Stroke Signs & Symptoms Discharge Data Attending Provider: Dustin Lang Admit Date/Time: 04/05/20 22:08 Discharges patient from system. Discharge Date/Time: 04/06/20 14:00 Quality VTE Deep Vein Thrombosis/Pulmonary Embolism Present on Admission: No
--- NOTE | 2020-04-06 14:21 | CM.DANOTE ---
DCP Assessment and Discharge Patient is a 25 year old male who was admitted on 04/05/20 for Head wound. Pt has [facility] for insurance and his PCP is not listed. EMR was reviewed. Per MD, pt with syncopal episode and will be admitted for observation and cardiac workup. Echo and ultrasound ordered for today. SW met bedside with pt and MD during MDR and pt confirms that he is active and independent at baseline and here visiting friends from [place] and pt has a plane ticket back home tonight around 1700 and eager to be cleared for discharge. Pt admits to some alcohol and drug use but denies any abuse or chronic use and does not anticipate any SW needs at d/c. Pt is active and works at baseline and has friends locally who are waiting to provide transport after d/c to the airport. Echo/ultrasound were normal and pt is medically stable to d/c home today. Per RN, pt has discharge instructions for scheduling appointment with PCP or walk in clinic in [place] to remove david on the back of his head from his syncopal episode and pt was taken down to his friends PO. Plan: Patient to d/c home today via friend POV and plane flight tonight back to [place] and outpt followup. No further SW needs. BEVERLY Ng
== END 2020-04-06 14:00 | disposition home or self-care (01) ==
LOC: ED 22:01 → AC 22:09
PROVIDERS: Admitting Provider Nurse Practitioner Adult Health; Emergency Provider Emergency Medicine; Referring Provider Emergency Medicine; Visit Provider Nurse Practitioner Adult Health
DX: R55 Syncope and collapse (principal); W18.30XA Fall on same level, unspecified, initial encounter; R94.31 Abnormal electrocardiogram [ECG] [EKG]; Z11.59 Encounter for screening for other viral diseases; F19.90 Other psychoactive substance use, unspecified, uncomplicated; Z23 Encounter for immunization
CPT/HCPCS: 12001; 36415; 70450; 71045; 80048; 80053; 80305; 81001; 82550; 83735; 84484; 85025; 87635; 90471; 90656; 93005; 93010; 93306; 96361; 96374; 99284; 99285; G0378; 90715; J2405; Q2038